=== PATIENT | male | born 1940 | race Caucasian/White ===

== ENCOUNTER 2016-08-19 09:44 | Outpatient (CLI) | payer MEDICARE, OTHER ==
[2015-06-14 22:30] VITALS: BP 118/72
== END 2016-08-19 09:45 ==
LOC: LAB 09:44
PROVIDERS: ATTEND Family Medicine
DX: E11.9 Type 2 diabetes mellitus without complications (principal)
CPT/HCPCS: 36415; 80061; 82043; 83036

== ENCOUNTER 2017-02-20 09:14 | Outpatient (CLI) | payer MEDICARE, OTHER ==
[2015-06-14 22:30] VITALS: BP 118/72
== END 2017-02-20 09:15 ==
LOC: LAB 09:14
PROVIDERS: ATTEND Family Medicine
DX: E11.9 Type 2 diabetes mellitus without complications (principal)
CPT/HCPCS: 36415; 83036

== ENCOUNTER 2017-08-21 09:50 | Outpatient (CLI) | payer MEDICARE, OTHER ==
[2015-06-14 22:30] VITALS: BP 118/72
[2017-08-21 10:48] LABS: eGFR (African) > 60; eGFR (Non-African) > 60
== END 2017-08-21 10:00 ==
LOC: LAB 09:50
PROVIDERS: ATTEND Family Medicine
DX: E11.8 Type 2 diabetes mellitus with unspecified complications (principal); E78.5 Hyperlipidemia, unspecified
CPT/HCPCS: 36415; 80053; 80061; 82043; 83036

== ENCOUNTER 2017-08-30 12:43 | Outpatient (CLI) | payer MEDICARE, OTHER ==
[2015-06-14 22:30] VITALS: BP 118/72
== END 2017-08-30 12:44 ==
LOC: LABRHC 12:43
PROVIDERS: ATTEND Family Medicine
DX: D18.01 Hemangioma of skin and subcutaneous tissue (principal)

== ENCOUNTER 2018-01-26 10:24 | Outpatient (CLI) | payer MEDICARE, OTHER ==
[2015-06-14 22:30] VITALS: BP 118/72
[2018-01-26 10:56] LABS: BASOPHILS % 0.5 (0.0-1.5); EOSINOPHILS % 1.8 % (0.0-6.8); MEAN CORPUSCULAR VOLUME 89.6 fl (80.0-100.0); MONOCYTES % 4.8 % (0.0-11.0); NEUTROPHILS # 4.5 # k/uL (1.4-7.7)
[2018-01-26 11:30] LABS: eGFR (African) > 60; eGFR (Non-African) > 60
== END 2018-01-26 10:26 ==
LOC: LAB 10:24
PROVIDERS: ATTEND Orthopaedic Surgery
DX: M75.121 Complete rotator cuff tear or rupture of right shoulder, not specified as traumatic (principal); Z01.818 Encounter for other preprocedural examination; Z79.01 Long term (current) use of anticoagulants; E11.9 Type 2 diabetes mellitus without complications
CPT/HCPCS: 36415; 80053; 83036; 85025; 85610; 85730